=== PATIENT | female | born 1965 | race Hispanic/Latino ===

== ENCOUNTER 2017-12-17 15:12 | Emergency (ER) | payer SELFPAY ==
[2017-12-17 15:47] LABS: PTT 26.8 SEC (22.9-36.1); Prothrombin Time 13.3 SEC (12.0-14.7)
[2017-12-17] MEDS ORDERED: Aspirin 325 MG TAB ONE (15:52)
--- NOTE | 2017-12-17 15:55 | RAD ---
AP VIEW CHEST: Date: 12/17/17 INDICATION: Chest pain. COMPARISON: None. FINDINGS: There is cardiomegaly without evidence of consolidation, pleural effusion, or pneumothorax. Osseous s tructures reveal no acute abnormality. IMPRESSION: Cardiomegaly. POS: [facility]
[2017-12-17] MEDS ORDERED: Benzonatate 100 MG CAP ONE (15:56)
[2017-12-17 16:00] LABS: ALT (SGPT) 20 U/L (8-55); AST (SGOT) 21 U/L (5-34); Albumin 4.1 g/dL (3.5-5.0); Alkaline Phosphatase 79 U/L (40-150); Anion Gap 17 mmol/L (10-20); BUN (Urea Nitrogen) 8 mg/dL (9.8-20.1); CK (CPK) 39 U/L (29-168); CKMB 0.3 ng/mL (0-6.6); Calc. Creatinine Clearance 0 mL/min (70-130); Calcium 9.5 mg/dL (7.8-10.44); Carbon Dioxide 22 mmol/L (22-29); Chloride 106 mmol/L (98-107); Estimated GFR-MDRD 90; Globulin 2.5 g/dL (2.4-3.5); Glucose 110 mg/dL (70-105); Magnesium 2.3 mg/dL (1.6-2.6); Potassium 3.4 mmol/L (3.5-5.1); Protein, Total 6.6 g/dL (6.0-8.3); Sodium 142 mmol/L (136-145); Troponin I Less than 0.010 ng/mL (< 0.028)
[2017-12-17] MEDS ORDERED: Dexamethasone 10 MG/ML VIAL ONE (16:00)
[2017-12-17] MEDS ORDERED: cefTRIAXone\\ROCEPHIN 1 GM VIAL ONE (16:00)
[2017-12-17] MEDS ORDERED: methylPREDNISolone Sod Succ/PF 125 MG/2 ML VIAL ONE (16:00)
[2017-12-17 16:07] LABS: Hemoglobin 12.8 g/dL (12.0-16.0); Lymphocytes 17 % (21-51); MDiff Complete? YES; Mean Corpuscular HGB CONC 33.3 g/dL (32.0-36.0); Mean Corpuscular Hemoglobin 26.6 pg (27.0-31.0); Mean Corpuscular Volume 79.9 fl (81.0-99.0); Mean Platelet Volume 6.7 fL (7.4-10.4); Monocytes 9 % (0-10); Neutrophil 74 % (42-75); PLT Morphology Comment Appears Adequate; Platelet Count 197 thou/uL (130-400); RBC Distribution Width 13.3 % (11.5-14.5); RBC Morphology Normal; Red Blood Cell (RBC) Count 4.83 mill/uL (4.20-5.40); White Blood Cell (WBC) Count 6.7 thou/uL (4.8-10.8)
[2017-12-17] MEDS ORDERED: Sodium Chloride 0.9% 100 ML BAG ONE (16:19)
[2017-12-17 17:26] LABS: Bilirubin Negative (Negative); Blood, Urine Small (Negative); Clarity Cloudy (Clear); Glucose, Urine (Dipstick) Negative (Negative); Leukocyte Small (Negative); Nitrite Negative (Negative); Protein, Urine (Dipstick) Trace mg/dL (Neg-Trace); Specific Gravity, Urine 1.025 (1.005-1.030); Urobilinogen 0.2 mg/dL (0.2-1.0); pH, Urine 5.5 (5.0-9.0)
[2017-12-17 17:36] LABS: Bacteria/HPF Rare-Few HPF (None Seen); RBC/HPF 0-3 HPF (0-3)
== END 2017-12-17 20:00 | disposition home or self-care (01) ==
LOC: MADERS 15:12
DX: J20.9 Acute bronchitis, unspecified (principal); N39.0 Urinary tract infection, site not specified; J45.909 Unspecified asthma, uncomplicated
CPT/HCPCS: 71045; 80053; 81001; 82550; 82553; 83605; 83735; 83880; 84484; 85025; 85610; 85730; 87040; 87081; 87086; 87430; 87804; 93005; 94760; 96365; 96375; J0696; J1100; J2930; J7050; J7620

== ENCOUNTER 2018-01-30 15:24 | Outpatient (CLI) | payer OTHER ==
--- NOTE | 2018-01-30 15:57 | RAD ---
THREE VIRWS RIGHT SHOULDER: DATE: 01/30/18. COMPARISON: None. HISTORY: Pain, no history of trauma. FINDINGS: No widening of the acromioclavicular or coracoclavicular interspace. No displaced fracture or disloc ation. IMPRESSION: No acute findings. POS: [facility]
== END 2018-01-30 15:25 | disposition home or self-care (01) ==
LOC: MADRAD 15:24
PROVIDERS: ATTEND Family Medicine
DX: M25.511 Pain in right shoulder (principal)